=== PATIENT | female | born 1945 | race Caucasian/White ===

== ENCOUNTER 2017-04-27 08:09 | Emergency (ER) | payer OTHER ==
[~2017-04-27] VITALS: Ht 162.6 cm; Wt 78.0 kg
[~2017-04-27 08:09] MED LIST: ANUHCSUP PR; ASPI81TA3 PO; ATEN50TA PO; BENA40TA54 PO; DOCU-159 PO; HYDR28.39 RC; LEVO300T5 PO; LINA145C PO
[2017-04-27 08:12] VITALS: Ht 162.6 cm; Wt 78.0 kg
[2017-04-27] MEDS ORDERED: DIAZEPAM 5 MG TAB PO STA (08:56)
--- NOTE | 2017-04-27 09:27 | ERD ---
ER Documentation Chief Complaint Date/Time DATE: 04/27/17 TIME: 09:24 Chief Complaint NECK PAIN X 8 DAYS HPI This is a 72-year-old female presenting to the emergency department complaining of left neck pain for the past 8 days. Patient rates the pain moderate in severity and increased with movement. Patient states that a few days ago she was seen at a different clinic or hospital and physician has given her tramadol , Tylenol and ibuprofen. Patient states that her last dose that she took was at 7:00 without any relief. Patient states I feel like I have too much stress. Patient states that there was no imaging done. She denies any chest pain, shortness of breath, paresthesias. ROS All systems reviewed and are negative except as per history of present illness. Medications Home Meds Active Scripts Diazepam* (Valium*) 5 Mg Tablet, 5 MG PO Q8 Y for MUSCLE SPASMS, #10 TAB Prov:RUFINO TSE PA-C 04/27/17 Reported Medications Hydrocortisone (PROCTOSOL-HC) 28.35 Gm Cream..g., 28.35 GM RC 08/06/15 Docusate Sodium* (Docusate Sodium*) 100 Mg Capsule, 250 MG PO DAILY, CAP 08/06/15 Hydrocortisone* Rectal (Anucort-HC* Supp) 25 Mg Supp, 25 MG NH HS, SUPP 08/06/15 Linaclotide (LINZESS) 145 Mcg Capsule, 145 MCG PO 08/06/15 Aspirin (Aspirin) 81 Mg Chew, 81 MG PO DAILY, TAB.CHEW 08/06/15 Levothyroxine Sodium* (Levothyroxine Sodium*) 300 Mcg Tablet, 88 MCG PO DAILY 06/14/13 Atenolol* (Atenolol*) 50 Mg Tablet, 50 MG PO DAILY 06/14/13 Benazepril Hcl* (Lotensin*) 40 Mg Tablet, 20 MG PO DAILY 06/14/13 Allergies Allergies: Coded Allergies: No Known Allergy (Unverified , 08/06/15) PMhx/Soc History of Surgery: Yes (cesarian) Hx Cardiac Disorders: Yes (htn; high cholesterol ) Hx Miscellaneous Medical Probl: Yes (hypothyroid) Hx Alcohol Use: No Hx Substance Use: No Hx Tobacco Use: No Smoking Status: Never smoker Physical Exam Vitals Vital Signs Date Time Temp Pulse Resp B/P Pulse Ox O2 Delivery O2 Flow Rate FiO2 04/27/17 08:12 98.1 68 18 148/67 99 Physical Exam GENERAL: WD/WN, in no apparent distress, non-toxic appearing HENT: NC/AT EYES: Conjunctiva normal NECK: Supple, patient had restricted range of motion looking right and left bilaterally due to pain, she was nontender to palpation on the spine midline, she is tender palpation of the left trapezius muscle PULM: Normal labored breathing CV: Good capillary refill GI: Non-distended, no guarding BACK: no deformities noted, normal spinal curvature, NTTP on lumbar region, non- tender on spine midline, EXT: No clubbing, cyanosis, or edema NEURO: Moves on all fours, sensation intact, normal gait SKIN: intact PSYCH: Normal mood Results 24 hrs Current Medications Medications (Trade) Dose Ordered Sig/Riki Route PRN Reason Start Time Stop Time Status Last Admin Dose Admin Diazepam (Valium) 5 mg ONCE STAT PO 04/27/17 08:56 04/27/17 08:58 DC 04/27/17 09:04 Procedures/MDM This is a 72-year-old female presenting to the emergency room complaining of left-sided neck pain for the past 8 days likely due to strain, degenerative changes and mild disc protrusion. No evidence of spinal abscess, fracture or subluxation patient is appropriate to be discharged home to follow-up with her primary care physician. A prescription for Valium was provided. Patient has been evaluated by another physician a few days ago and received tramadol/ Tylenol and ibuprofen. I have discussed with her to continue the ibuprofen. Initially a cervical x-ray was done and stated that fractures are difficult to exclude therefore a cervical CT was done and radiologist stated: Cervical CT: 1. Reversal of normal cervical lordosis centered at C4-C5. 2. No acute fracture or traumatic subluxation. 3. Multilevel mild degenerative changes of the cervical spine, most prominent at C5-C6. 4. Posterior mild disk protrusions contribute to mild spinal canal narrowing at C3-C4 through C5-C6. Cervical XRAY: Linear lucencies projecting over the C4, and C7 spinous processes which may be artifactual, but fractures are difficult to exclude. Further assessed with CT is advised. Cervical spondylosis described above. Patient stable and neurovascular intact for discharge for home. She understands and agrees with this plan Departure Diagnosis: Primary Impression: Neck pain Additional Impression: DJD (degenerative joint disease) of cervical spine Condition: Stable RUFINO TSE PA-C Apr 27, 2017 09:27
--- NOTE | 2017-04-27 10:20 | RADRPT ---
PROCEDURE: XR cervical spine CLINICAL INDICATION: Neck pain TECHNIQUE: 3 views of the cervical spine were obtained COMPARISON: None available FINDINGS: Linear lucencies are seen projecting over the C4, and C7 spinous processes on the lateral view. The vertebral bodies are maintained in height. There is preservation of the lordosis of the cervical sp ine without malalignment seen. Intervertebral disk spaces are maintained in height. Degenerative c hanges are seen at the anterior atlantoaxial joint. There is facet arthropathy at multiple levels. Prevertebral soft tissues are unremarkable. IMPRESSION: Linear lucencies projecting over the C4, and C7 spinous processes which may be artifactual, but frac tures are difficult to exclude. Further assessed with CT is advised. Cervical spondylosis described above. RPTAT: VV .Ender Leonard MD, MD Date Time Electronically viewed and signed by .Ender Leonard MD, MD on 04/27/2017 10:20 .O/
--- NOTE | 2017-04-27 11:36 | RADRPT ---
PROCEDURE: CT cervical spine without contrast CLINICAL INDICATION: Trauma. Neck pain. TECHNIQUE: CT scan of the cervical spine [facility] No IV contrast was administered. Coronal and sagittal reformatted images were obtained from th e axial source images. Images were reviewed on a high-resolution PACS workstation. One or more the f ollowing does reduction techniques were utilized: Automated exposure control, adjustment of the mA/ or kV according to patient's size, or use of iterative reconstruction technique. Exam CTDI = 22.12 m Gy and the DLP = 415.86 mGy-cm. COMPARISON: None available. FINDINGS: There is reversal of normal cervical lordosis centered at C4-C5. Alignment remains intact. No acut e fracture or dislocation is seen. The vertebral body heights are preserved. No mass, hematoma, or other soft tissue abnormality is seen. There are multilevel mild degenerative changes of the cervical spine, manifested by osteophytosis an d disc height narrowing, most prominent at C5-C6. Multilevel mild facet arthropathy is noted. Poste rior disk protrusions contribute to mild spinal canal narrowing at C3-C4 through C5-C6. IMPRESSION: 1. Reversal of normal cervical lordosis centered at C4-C5. 2. No acute fracture or traumatic subluxation. 3. Multilevel mild degenerative changes of the cervical spine, most prominent at C5-C6. 4. Posterior mild disk protrusions contribute to mild spinal canal narrowing at C3-C4 through C5-C6 . RPTAT: UU .Nadine Sanchez MD, Date Time Electronically viewed and signed by .Nadine Sanchez MD, MD on 04/27/2017 11:35 .N/
[2017-04-27] MEDS ORDERED: DIAZ-90 PO (11:41)
== END 2017-04-27 12:00 | disposition home or self-care (01) ==
LOC: FTE 08:09
DX: M54.2 Cervicalgia (principal); M19.90 Unspecified osteoarthritis, unspecified site; I10 Essential (primary) hypertension; E03.9 Hypothyroidism, unspecified; Z79.82 Long term (current) use of aspirin
CPT/HCPCS: 72040; 72125